=== PATIENT | male | born 1930 | race Asian ===

== ENCOUNTER 2021-01-16 19:25 | Inpatient (IN) | payer OTHER ==
[~2021-01-16] VITALS: Ht 162.6 cm; Wt 73.1 kg
[2021-01-16 19:31] VITALS: Ht 162.6 cm; Wt 73.1 kg
[2021-01-16 20:40] LABS: CALCIUM 8.5 mg/dL (8.5-10.1); CARBON DIOXIDE 26.8 mmol/L (21-32); CHLORIDE SERUM 103 mmol/L (98-107); CREATININE SERUM 1.3 mg/dL (0.7-1.3); GLUCOSE SERUM 121 mg/dL (74-106); POTASSIUM SERUM 4.2 mmol/L (3.5-5.1); SODIUM SERUM 137 mmol/L (136-145)
[2021-01-16 20:43] LABS: BASOPHIL % 0.1 % (0.2-1.5); PLATELET COUNT 160 x10^3mcL (152-348)
[2021-01-16 20:45] LABS: ALKALINE PHOSPHATASE 58 U/L (46-116); ALT/SGPT 27 U/L (16-63); AST/SGOT 18 U/L (15-37); MAGNESIUM 2.2 mg/dL (1.8-2.4); RED CELL DISTRIBUTION WIDTH 17.8 % (12.1-16.2); TOTAL PROTEIN, SERUM 6.5 g/dL (6.4-8.2)
[2021-01-16 20:50] LABS: ovalocyte/elliptocyte 1+; rbc morphology (normal/abnorm) ABNORMAL (NORMAL)
[2021-01-16] MEDS ORDERED: AMLODIPINE BES2.5 M1 PO (21:35)
[2021-01-16] MEDS ORDERED: ADULT ASPIRIN R81 MG PO (21:37)
[2021-01-16] MEDS ORDERED: BETAXOLOL HCL5 ML OU (21:37)
[2021-01-16] MEDS ORDERED: CILOS OD (21:38)
[2021-01-16] MEDS ORDERED: DORZOLAMIDE HCL10 ML OU (21:39)
[2021-01-16] MEDS ORDERED: ADVAIR DISKUS 51 AER IH (21:40)
[2021-01-16] MEDS ORDERED: ATROVENT H0.017 MG/1 IH (21:42)
[2021-01-16] MEDS ORDERED: LATANOPROST 0.7.5 ML OD (21:43)
[2021-01-16] MEDS ORDERED: DAILY MULTIPLE PO (21:44)
[2021-01-16] MEDS ORDERED: LOSARTAN POTASS25 M1 PO (21:44)
[2021-01-16] MEDS ORDERED: NITROGLYCERIN0.4 MG SL (21:45)
[2021-01-16] MEDS ORDERED: ARTIFICIAL TEA1 EACH OP (21:46)
[2021-01-16] MEDS ORDERED: PREDNISOLONE 1% OD (21:47)
[2021-01-16] MEDS ORDERED: PANTOPRAZOLE SO20 M1 PO (21:47)
[2021-01-16] MEDS ORDERED: SIMVASTATIN20 M1 PO (21:48)
[2021-01-17 00:18] VITALS: BP 123/63
[2021-01-17 05:15] VITALS: BP 154/72
[2021-01-17 06:53] LABS: BASOPHIL % 0.2 % (0.2-1.5); PLATELET COUNT 164 x10^3mcL (152-348); RED CELL DISTRIBUTION WIDTH 16.8 % (12.1-16.2)
[2021-01-17 06:57] LABS: ALKALINE PHOSPHATASE 57 U/L (46-116); ALT/SGPT 29 U/L (16-63); AST/SGOT 21 U/L (15-37); BILIRUBIN TOTAL 0.6 mg/dL (0.20-1.00); CALCIUM 8.7 mg/dL (8.5-10.1); CARBON DIOXIDE 26.5 mmol/L (21-32); CHLORIDE SERUM 106 mmol/L (98-107); CREATININE SERUM 0.9 mg/dL (0.7-1.3); GLUCOSE SERUM 106 mg/dL (74-106); POTASSIUM SERUM 3.6 mmol/L (3.5-5.1); SODIUM SERUM 141 mmol/L (136-145); TOTAL PROTEIN, SERUM 7.3 g/dL (6.4-8.2)
[2021-01-17 07:01] LABS: ALBUMIN 3.1 g/dL (3.4-5.0)
[2021-01-17] MEDS ORDERED: ALPHAGAN P5 M1 OP (08:50)
[2021-01-17 09:07] VITALS: BP 151/68
[2021-01-17 12:06] VITALS: BP 157/68
[2021-01-17 16:01] VITALS: BP 155/63
[2021-01-17 20:29] VITALS: BP 137/54
[2021-01-18 05:21] VITALS: BP 131/59
[2021-01-18 06:57] LABS: BASOPHIL % 0.4 % (0.2-1.5); PLATELET COUNT 160 x10^3mcL (152-348)
[2021-01-18 07:06] LABS: RED CELL DISTRIBUTION WIDTH 16.4 % (12.1-16.2)
[2021-01-18 07:18] LABS: ALKALINE PHOSPHATASE 58 U/L (46-116); ALT/SGPT 31 U/L (16-63); AST/SGOT 21 U/L (15-37); BILIRUBIN TOTAL 0.64 mg/dL (0.20-1.00); CALCIUM 8.4 mg/dL (8.5-10.1); CARBON DIOXIDE 23.3 mmol/L (21-32); CHLORIDE SERUM 110 mmol/L (98-107); GLUCOSE SERUM 101 mg/dL (74-106); POTASSIUM SERUM 3.5 mmol/L (3.5-5.1); SODIUM SERUM 143 mmol/L (136-145)
[2021-01-18 08:48] VITALS: BP 153/74
[2021-01-18 11:45] VITALS: BP 113/53
[2021-01-18] MEDS ORDERED: PANTOPRAZOLE SO20 M1 PO (11:50)
[2021-01-18 14:03] VITALS: BP 113/53
== END 2021-01-18 15:47 | disposition home or self-care (01) | DRG 253 ==
LOC: ED 19:25 → DU 21:06
PROVIDERS: Internal Medicine Gastroenterology; Student in an Organized Health Care Education/Training Program; ADMIT Hospitalist; ATTEND Hospitalist
PROC: 30233N1 Transfusion of Nonautologous Red Blood Cells into Peripheral Vein, Percutaneous Approach (ICD-10-PCS; 2021-01-16)
PROC: 0DB68ZX Excision of Stomach, Via Natural or Artificial Opening Endoscopic, Diagnostic (ICD-10-PCS; principal; 2021-01-17 16:00)
PROC: 0DB78ZX Excision of Stomach, Pylorus, Via Natural or Artificial Opening Endoscopic, Diagnostic (ICD-10-PCS; 2021-01-17 16:00)
PROC: 3E1H88Z Irrigation of Lower GI using Irrigating Substance, Via Natural or Artificial Opening Endoscopic (ICD-10-PCS; 2021-01-18)
DX: K55.21 Angiodysplasia of colon with hemorrhage (principal); J44.9 Chronic obstructive pulmonary disease, unspecified; D64.9 Anemia, unspecified; Z20.822 Contact with and (suspected) exposure to COVID-19; I10 Essential (primary) hypertension; H40.9 Unspecified glaucoma; Z79.899 Other long term (current) drug therapy
CPT/HCPCS: 43235; 45378; C9113; G0378; J1200; J1610; J2250; J2310; J2405; J3010; J3490; J7030; J7050; P9016